=== PATIENT | male | born 1980 | race Caucasian/White ===

== ENCOUNTER 2017-04-08 09:27 | Emergency (ER) | payer MEDICAID ==
[~2017-04-08] VITALS: Ht 182.9 cm; Wt 104.3 kg
[2017-04-08 09:30] VITALS: BP_SYST 142
[2017-04-08 09:40] VITALS: BP_SYST 142
== END 2017-04-08 09:40 ==
LOC: SED 09:27
DX: I10 Essential (primary) hypertension (principal)
CPT/HCPCS: 99283